=== PATIENT | male | born 1970 | race African-American/Black ===

== ENCOUNTER 2019-12-08 18:35 | Emergency (ER) | payer SELFPAY ==
[2019-12-08] MEDS ORDERED: Acetaminophen 500 MG TAB ONE (18:50)
== END 2019-12-08 19:18 | disposition home or self-care (01) ==
LOC: NAV ERS 18:35
DX: J11.1 Influenza due to unidentified influenza virus with other respiratory manifestations (principal); B34.9 Viral infection, unspecified
CPT/HCPCS: 99283

== ENCOUNTER 2021-05-06 16:18 | Emergency (ER) | payer SELFPAY ==
[2021-05-06] MEDS ORDERED: Fentanyl 100 MCG/2 ML VIAL ONE (16:40)
[2021-05-06 17:06] LABS: Anion Gap 15 mmol/L (10-20); BUN (Urea Nitrogen) 16 mg/dL (8.9-20.6); Calc. Creatinine Clearance 0 mL/min (70-130); Calcium 9.3 mg/dL (7.8-10.44); Carbon Dioxide 22 mmol/L (22-29); Chloride 104 mmol/L (98-107); Glucose 93 mg/dL (70-105); Potassium 4.1 mmol/L (3.5-5.1); Sodium 137 mmol/L (136-145)
== END 2021-05-06 17:39 | disposition home or self-care (01) ==
LOC: NAV ERS 16:18
DX: T22.211A Burn of second degree of right forearm, initial encounter (principal); T31.0 Burns involving less than 10% of body surface; X19.XXXA Contact with other heat and hot substances, initial encounter
CPT/HCPCS: 16020; 80048; 96374; J3010

== ENCOUNTER 2022-04-27 13:39 | Emergency (ER) | payer OTHER, SELFPAY ==
[2022-04-27] MEDS ORDERED: Ibuprofen 800 MG TAB ONE (14:47)
[2022-04-27] MEDS ORDERED: Amlodipine 5 MG TAB ONE (14:47)
== END 2022-04-27 14:54 | disposition home or self-care (01) ==
LOC: NAV ERS 13:39
DX: S50.02XA Contusion of left elbow, initial encounter (principal); I10 Essential (primary) hypertension; W01.0XXA Fall on same level from slipping, tripping and stumbling without subsequent striking against object, initial encounter

== ENCOUNTER 2023-05-15 17:59 | Emergency (ER) | payer BC, SELFPAY ==
[2023-05-15] MEDS ORDERED: Naproxen 500 MG TAB ONE (18:28)
[2023-05-15] MEDS ORDERED: traMADol HCl 50 MG TAB ONE (18:53)
== END 2023-05-15 19:02 | disposition home or self-care (01) ==
LOC: NAV ERS 17:59
DX: M16.11 Unilateral primary osteoarthritis, right hip (principal); M76.9 Unspecified enthesopathy, lower limb, excluding foot; I10 Essential (primary) hypertension